=== PATIENT | female | born 1960 | race American Indian/Alaskan Native ===

== ENCOUNTER 2020-06-18 14:56 | Emergency (ER) | payer MEDICAID, OTHER ==
[2020-06-18] MEDS ORDERED: Aspirin 81 MG Tab.Chew PO ONE (15:26)
--- NOTE | 2020-06-18 15:29 | EDM.PDOC ---
ED HPI GENERAL MEDICAL PROBLEM - General Chief Complaint: Chest Pain Stated Complaint: CHEST PAIN Time Seen by Provider: 06/18/20 15:22 Source of Information: Reports: Patient, Family, RN Notes Reviewed History Limitations: Reports: No Limitations - History of Present Illness INITIAL COMMENTS - FREE TEXT/NARRATIVE: 60-year-old female presents emergency department complaint of chest pain, she states the chest pain started 1 hour prior describes it as sharp twinges however the pain now has resolved she felt a little short of breath did feel diaphoretic no nausea no history of coronary artery disease family history mother age 54 - Related Data Allergies Allergy/AdvReac Type Severity Reaction Status Date / Time No Known Allergies Allergy Verified 06/18/20 15:05 Home Meds: Home Meds Ergocalciferol (Vitamin D2) [Vitamin D2] 1 tab PO DAILY 03/01/13 [History] Aspirin [Halfprin] 81 mg PO DAILY 06/18/20 [History] atenoloL [Atenolol] 50 mg PO DAILY 06/18/20 [History] atorvaSTATin Calcium [Atorvastatin Calcium] 20 mg PO BEDTIME 06/18/20 [History] Past Medical History Cardiovascular History: Reports: High Cholesterol, Hypertension Musculoskeletal History: Reports: Fracture - Past Surgical History GI Surgical History: Reports: Appendectomy Social & Family History - Tobacco Use Tobacco Use Status *Q: Current Every Day Tobacco User Years of Tobacco use: 30 Packs/Tins Daily: 0.5 - Alcohol Use Number of Drinks Per Day: 7 - Recreational Drug Use Recreational Drug Use: No ED ROS GENERAL - Review of Systems Review Of Systems: See Below Constitutional: Reports: Diaphoresis Respiratory: Reports: Shortness of Breath Cardiovascular: Reports: Chest Pain GI/Abdominal: Denies: Nausea : Reports: No Symptoms ED EXAM, GENERAL - Physical Exam Exam: See Below Exam Limited By: No Limitations General Appearance: Alert, WD/WN, No Apparent Distress Respiratory/Chest: No Respiratory Distress, Lungs Clear, Normal Breath Sounds, No Accessory Muscle Use, Chest Non-Tender Cardiovascular: Regular Rate, Rhythm, No Murmur GI/Abdominal: Soft, Non-Tender Extremities: No Pedal Edema #1 Interpretation EKG Date: 06/18/20 Time: 15:04 Rhythm: NSR Rate (Beats/Min): 74 [place]: Normal P-Wave: Present QRS: Normal ST-T: Normal QT: Normal Comparison: NA - No Prior EKG Course - Vital Signs Last Recorded V/S: Last Vital Signs Temp 97.8 F 06/18/20 15:14 Pulse 71 06/18/20 16:31 Resp 15 06/18/20 16:31 BP 182/98 H 06/18/20 16:31 Pulse Ox 98 06/18/20 16:31 - Orders/Labs/Meds Orders: Active Orders 24 hr Category Date Time Status Cardiac Monitoring [RC] .As Directed Care 06/18/20 15:26 Active EKG Documentation Completion [RC] ASDIRECTED Care 06/18/20 15:26 Active Chest 1V Frontal [CR] Stat Exams 06/18/20 15:26 Taken EKG 12 Lead [EK] Stat Ther 06/18/20 15:26 Ordered Labs: Laboratory Tests 06/18/20 06/18/20 Range/Units 15:25 15:25 WBC 10.5 (4.5-11.0) K/uL RBC 4.22 (3.30-5.50) M/uL Hgb 13.9 (12.0-15.0) g/dL Hct 42.2 (36.0-48.0) % MCV 100 H (80-98) fL MCH 33 H (27-31) pg MCHC 33 (32-36) % Plt Count 246 (150-400) K/uL Neut % (Auto) 72 H (36-66) % Lymph % (Auto) 17 L (24-44) % [place] % (Auto) 8 H (2-6) % Eos % (Auto) 2 (2-4) % Baso % (Auto) 1 (0-1) % Sodium 142 (140-148) mmol/L Potassium 4.3 (3.6-5.2) mmol/L Chloride 104 (100-108) mmol/L Carbon Dioxide 25 (21-32) mmol/L Anion Gap 13.4 (5.0-14.0) mmol/L BUN 12 (7-18) mg/dL Creatinine 0.9 (0.6-1.0) mg/dL Est Cr Clr Drug Dosing 53.89 mL/min Estimated GFR (MDRD) > 60 (>60) Glucose 153 H (74-106) mg/dL Calcium 8.9 (8.5-10.1) mg/dL Troponin I < 0.017 (0.000-0.056) ng/mL Meds: Medications Discontinued Medications Generic Name Dose Route Start Last Admin Trade Name Michael PRN Reason Stop Dose Admin Aspirin 324 mg 06/18/20 15:26 06/18/20 15:40 Aspirin 81 Mg Tab.Chew PO 06/18/20 15:27 324 mg ONETIME ONE Administration Departure - Departure Time of Disposition: 16:38 Disposition: Home, Self-Care 01 Condition: Fair Clinical Impression: Atypical chest pain Instructions: Nonspecific Chest Pain, Adult Referrals: PCP,None [Primary Care Provider] - Forms: ED Department Discharge Additional Instructions: Please follow-up with your primary care recommend outpatient stress test, call return to the emergency department worsening of symptoms Sepsis Event Note (ED) - Evaluation Sepsis Screening Result: No Definite Risk - Focused Exam Vital Signs: Vital Signs Temp Pulse Resp BP Pulse Ox 06/18/20 16:31 71 15 182/98 H 98 06/18/20 15:38 70 17 165/84 H 98 06/18/20 15:14 97.8 F 74 14 193/94 H 100 06/18/20 15:10 97.8 F 74 14 193/94 H 100 - My Orders Last 24 Hours: My Active Orders 06/18/20 15:26 Cardiac Monitoring [RC] .As Directed EKG Documentation Completion [RC] ASDIRECTED Chest 1V Frontal [CR] Stat EKG 12 Lead [EK] Stat - Assessment/Plan Last 24 Hours: My Active Orders 06/18/20 15:26 Cardiac Monitoring [RC] .As Directed EKG Documentation Completion [RC] ASDIRECTED Chest 1V Frontal [CR] Stat EKG 12 Lead [EK] Stat Plan: Assessment Acuity = acute Site and laterality = atypical chest pain Etiology = unknown Manifestations = none Location of injury = Home Lab values = CBC BMP troponin within normal limits chest x-ray I did review films myself I cannot appreciate any acute process, the official read from radiology is pending, EKG showed no ST elevation or depression Plan She remained chest pain-free while in the emergency department she is to follow- up with her primary care for stress test hopefully next week her heart score was 3 This note was dictated using [employer] voice recognition software please call with any questions on syntax or grammar.
--- NOTE | 2020-06-19 08:54 | CR ---
CHEST: Portable 06/18/2020 3:41 PM CLINICAL HISTORY:Chest pain COMPARISON:None FINDINGS: The heart size, pulmonary vascularity and hilar structures are normal. No infiltrate effusion or pneumothorax is seen. IMPRESSION: No acute cardiopulmonary process.
== END 2020-06-18 17:03 | disposition home or self-care (01) ==
LOC: JP.ED 14:56
DX: R07.89 Other chest pain (principal); R06.02 Shortness of breath; E78.00 Pure hypercholesterolemia, unspecified; I10 Essential (primary) hypertension; Z79.82 Long term (current) use of aspirin; Z79.899 Other long term (current) drug therapy; Z72.0 Tobacco use
CPT/HCPCS: 36415; 71045; 71045-26; 80048; 84484; 85025; 93005; 99283; 99285-25; A9270-GY

== ENCOUNTER 2021-09-09 18:57 | Emergency (ER) | payer MEDICAID ==
[2021-09-09 21:42] LABS: ESTIMATED GFR 74 mL/min (>60)
== END 2021-09-09 22:41 | disposition home or self-care (01) ==
LOC: JP.ED 18:57
DX: J44.9 Chronic obstructive pulmonary disease, unspecified (principal); R07.81 Pleurodynia; Z72.0 Tobacco use
CPT/HCPCS: 36415; 71046; 71046-26; 80053; 85025; 85379; 86140; 99282; 99284-25